=== PATIENT | male | born 1965 | race Caucasian/White ===

== ENCOUNTER → 2021-08-27 11:04 | Outpatient (CLI) | payer BC, SELFPAY ==
--- NOTE | ~2021-08-27 | US_ITS ---
EXAMINATION: US scrotum doppler EXAM DATE: 08/27/2021 11:48 INDICATION: N50.89 - Other specified disorders of the male genital or... TECHNIQUE: Multiple grayscale and Doppler images of the testicles and scrotum were obtained bilateral ly. There is no prior study for comparison. FINDINGS: Right testicle measures 4.3 x 2.0 x 2.9 cm and is morphologically normal. Low resistance Doppler lora w confirmed. The epididymis is unremarkable. There is a small hydrocele. Left testicle measures 3.6 x 2.5 x 2.9 cm and is morphologically normal. Low resistance Doppler flow confirmed. The epididymis is unremarkable. There is a moderate-sized hydrocele. IMPRESSION: 1. Moderate left, small right hydroceles. Reviewed, dictated and finalized at location G.
== END ==
PROVIDERS: Visit Provider Nurse Practitioner
DX: N50.89 Other specified disorders of the male genital organs (principal); N43.3 Hydrocele, unspecified
CPT/HCPCS: 76870; 93976